=== PATIENT | male | born 1955 | race Caucasian/White ===

== ENCOUNTER 2020-07-17 06:49 | Observation (INO) | payer MEDICARE ==
[2020-07-15 09:25] LABS: BASOPHILS % (AUTO) 1 % (0-1); EOSINOPHILS % (AUTO) 1 % (1-7); LYMPHOCYTES % (AUTO) 22 % (22-44); MEAN CORPUSCULAR HEMOGLOBIN 34.8 pg (27.5-34.5); MEAN CORPUSCULAR HGB CONC 34.6 g/dL (33.2-36.2); MEAN PLATELET VOLUME 7.7 fL (7.4-10.4); MONOCYTES % (AUTO) 6 % (2-9); NEUTROPHILS % (AUTO) 71 % (42-75); PLATELET COUNT 170 x10^3/uL (130-400); RED BLOOD COUNT 5.23 x10^6/uL (4.38-5.82); RED CELL DISTRIBUTION WIDTH 12.9 % (9.4-14.8)
[2020-07-15 09:34] LABS: MD NO
[2020-07-15 09:35] LABS: ANION GAP 7 mmol/L (5-15); CHLORIDE 107 mmol/L (98-107); CREATININE 1.24 mg/dL (0.7-1.3); INTERNATIONAL NORMALIZED RATIO 1.01 (0.93-1.1); PROTHROMBIN TIME 10.7 Seconds (9.6-11.5)
[~2020-07-17] VITALS: Ht 182.9 cm; Wt 88.6 kg
[~2020-07-17 06:49] MED LIST: BACITRACIN 50,000 UNIT ONE; BUPIVACAINE/PF 0.5% ONE; EPINEPHRINE 1 MG/ML, 1ML ONE; HYDR-3622 PO; VANCOMYCIN 1,000 MG ONE
[2020-07-17] MEDS ORDERED: CHLORHEXIDINE 15 ML UDC MM ONE (07:30)
[2020-07-17] MEDS ORDERED: LACTATED RINGERS 1,000 ML IV SCH (07:30)
[2020-07-17 07:32] VITALS: BP 186/98
[2020-07-17] MEDS ORDERED: CHLORHEXIDINE 15 ML UDC ONE (07:37)
[2020-07-17 07:54] LABS: MICROSCOPIC AUTO
[2020-07-17] MEDS ORDERED: MIDAZOLAM 1 MG/ML, 2ML ONE (08:24)
[2020-07-17] MEDS ORDERED: FENTANYL PF 250 MCG/5ML ONE (08:25)
[2020-07-17] MEDS ORDERED: ROCURONIUM 10MG/ML,5ML ONE (09:19)
[2020-07-17] MEDS ORDERED: PROPOFOL 10 MG/ML, 20ML ONE (09:19)
[2020-07-17] MEDS ORDERED: DEXAMETHASONE 4 MG/ML, 1ML ONE ×2 (09:38)
[2020-07-17] MEDS ORDERED: CEFAZOLIN 1,000 MG ONE (09:38)
[2020-07-17] MEDS ORDERED: LABETALOL 5MG/ML, 20ML IV PRN (10:30)
[2020-07-17] MEDS ORDERED: LORazepam 2 MG/ML, 1ML IVPush PRN (10:30)
[2020-07-17] MEDS ORDERED: OXYcodone 5 MG/5 ML ORAL.SOL UDC PO PRN (10:30)
[2020-07-17] MEDS ORDERED: hydrALAzine 20 MG/ML, 1ML IV PRN (10:30)
[2020-07-17] MEDS ORDERED: ACETAMINOPHEN 325 MG TABLET PO PRN (10:30)
[2020-07-17] MEDS ORDERED: METHOCARBAMOL 1,000 MG in DEXTROSE 5% 100 ML IV PRN (10:30)
[2020-07-17] MEDS ORDERED: ONDANSETRON 2MG/ML, 2ML IVPush PRN ×2 (10:30→12:00)
[2020-07-17] MEDS ORDERED: MEPERIDINE/PF 25MG/0.5ML IVPush PRN (10:30)
[2020-07-17] MEDS ORDERED: DIAZEPAM 5 MG/ML, 2ML IVPush PRN (10:30)
[2020-07-17] MEDS ORDERED: PROMETHAZINE 25 MG/ML, 1ML IVPush PRN (10:30)
[2020-07-17] MEDS ORDERED: ONDANSETRON 2MG/ML, 2ML ONE (11:12)
[2020-07-17] MEDS ORDERED: CEFAZOLIN PMX 1GM/50ML 50 ML IVPB SCH (12:00)
[2020-07-17] MEDS ORDERED: BISACODYL 10 MG SUPP PR PRN (12:00)
[2020-07-17] MEDS ORDERED: SENNA/DOCUSATE TABLET PO PRN (12:00)
[2020-07-17] MEDS ORDERED: MAGNESIUM HYDROXIDE 8%, 30ML UDC PO PRN (12:00)
[2020-07-17] MEDS ORDERED: PROMETHAZINE 25 MG/ML, 1ML IM PRN (12:00)
[2020-07-17] MEDS ORDERED: METHOCARBAMOL 1,000 MG in DEXTROSE 5% 100 ML IV ONE (12:00)
[2020-07-17] MEDS ORDERED: DIPHENHYDRAMINE 50 MG/ML, 1ML IVPush PRN (12:00)
[2020-07-17] MEDS ORDERED: HYDROcodone/APAP 5/325 TABLET PO PRN (12:00)
[2020-07-17] MEDS ORDERED: PHARMACY MAY ADJ FOR RENAL FX MC PRN (12:00)
[2020-07-17] MEDS: ENOXAPARIN 40 MG/0.4 ML SQ SCH (12:00)
[2020-07-17] MEDS: SODIUM CHLORIDE FLUSH 10ML SYR IVF SCH ×2 (12:00→21:00)
[2020-07-17] MEDS ORDERED: FENTANYL PF 100 MCG/2ML ONE (12:03)
[2020-07-17] MEDS ORDERED: OXYcodone 5 MG/5 ML ORAL.SOL UDC ONE (12:04)
[2020-07-17] MEDS: FENTANYL PF 100 MCG/2ML IV PRN ×2 (12:05→12:10)
[2020-07-17] MEDS ORDERED: HYDROmorphone 2 MG/ML, 1ML ONE (12:16)
[2020-07-17] MEDS: HYDROmorphone 1 MG/ML, 1ML INJ IVPush PRN ×6 (12:21→14:43)
[2020-07-17 14:30] VITALS: BP 120/77
[2020-07-17] MEDS: HYDROcodone/APAP 10/325 MG TABLET PO PRN ×3 (16:12→21:10)
[2020-07-17] MEDS: D5%-0.9% NACL+KCL 20MEQ 1,000 ML IV SCH (16:12)
[2020-07-17] MEDS: CEFAZOLIN PMX 1GM/50ML 50 ML IVPB SCH (17:17)
[2020-07-17] MEDS: METHOCARBAMOL 750 MG TABLET PO PRN (21:10)
[2020-07-17 21:15] VITALS: BP 148/96
[2020-07-18 00:10] VITALS: BP 147/95
[2020-07-18] MEDS: HYDROcodone/APAP 10/325 MG TABLET PO PRN ×2 (01:23→05:23)
[2020-07-18] MEDS: D5%-0.9% NACL+KCL 20MEQ 1,000 ML IV SCH ×2 (01:23→12:00)
[2020-07-18] MEDS: CEFAZOLIN PMX 1GM/50ML 50 ML IVPB SCH ×2 (01:23→09:19)
[2020-07-18 03:38] VITALS: BP 146/84
[2020-07-18] MEDS: METHOCARBAMOL 750 MG TABLET PO PRN (05:23)
[2020-07-18] MEDS: ENOXAPARIN 40 MG/0.4 ML SQ SCH (05:24)
[2020-07-18 07:08] VITALS: BP 148/87
[2020-07-18] MEDS ORDERED: HYDR-3245 PO (08:11)
[2020-07-18] MEDS ORDERED: METH750T2 PO (08:11)
[2020-07-18] MEDS: SODIUM CHLORIDE FLUSH 10ML SYR IVF SCH (09:20)
[2020-07-18 12:42] VITALS: BP 151/98
== END 2020-07-18 13:35 | disposition home or self-care (01) ==
LOC: OUT 06:49 → ORIP 11:41 → 2NW 13:20 → 4NE 20:05 → DCLOUNGE 07-18 13:20
PROVIDERS: ADMIT Neurological Surgery; ATTEND Neurological Surgery
DX: M51.16 Intervertebral disc disorders with radiculopathy, lumbar region (principal); Z20.828 Contact with and (suspected) exposure to other viral communicable diseases; M48.062 Spinal stenosis, lumbar region with neurogenic claudication; M47.26 Other spondylosis with radiculopathy, lumbar region; Z79.899 Other long term (current) drug therapy
CPT/HCPCS: 36415; 63056; 63057; 71046; 72100; 80048; 81001; 85025; 85610; 85730; 87635; 93005; 96361; 96365; 96366; 96372; 96375; 97162; 97165; G0378; J0171; J0690; J1100; J1170; J1650; J2250; J2405; J2704; J2800; J3010; J3370; J3480; J7120; S0020